=== PATIENT | female | born 2000 | race Hispanic/Latino ===

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

== ENCOUNTER 2020-03-09 17:52 | Emergency (ER) | payer MEDICAID, OTHER ==
[2020-03-09] MEDS ORDERED: NAPROXEN 500 MG TABLET ONE (18:18)
== END 2020-03-09 19:29 | disposition home or self-care (01) ==
LOC: EDH 17:52
DX: S66.911A Strain of unspecified muscle, fascia and tendon at wrist and hand level, right hand, initial encounter (principal); X58.XXXA Exposure to other specified factors, initial encounter; Y93.89 Activity, other specified; Y92.89 Other specified places as the place of occurrence of the external cause; Y99.8 Other external cause status
CPT/HCPCS: 73110